=== PATIENT | male | born 1970 | race Asian ===

== ENCOUNTER 2016-10-31 10:42 | Day surgery (SDC) | payer OTHER ==
[2016-10-31] VITALS (8 sets, daily range): BP systolic 113–151; BP diastolic 79–100; PULSE 78–86; RESP 13–18; O2SAT 94–97
[~2016-10-31] VITALS: Ht 160 cm; Wt 82.9 kg
[~2016-10-31 10:42] MED LIST: BETA60LO4 TOP; HYG25 PO; Levofloxacin 500 mg/100 mL D5W IV ONE
[2016-10-31] MEDS ORDERED: Propofol 10,000 mCg/mL 20 mL Inj ONE (10:43)
[2016-10-31] MEDS ORDERED: Dexamethasone 4 mg/mL Inj ONE (10:43)
[2016-10-31] MEDS ORDERED: fentaNYL-PF 50 mCg/mL 2 mL Inj ONE (10:43)
[2016-10-31] MEDS ORDERED: Ondansetron 2 mg/mL 2 mL Inj ONE (10:43)
[2016-10-31] MEDS ORDERED: levoFLOXacin 500 mg/100 mL D5W Premix IV ONE (11:19)
[2016-10-31] MEDS: Lactated Ringer's 1,000 ML IV SCH ×2 (11:23→15:32)
[2016-10-31] MEDS ORDERED: Lactated Ringer's 500 ML IV PRN (15:54)
[2016-10-31] MEDS ORDERED: Lactated Ringer's 1,000 ML IV SCH (15:54)
--- NOTE | 2016-10-31 15:54 | PCM.HPANE ---
Patient Data Surgeon Admitting Provider: Attending Provider:Kiran Frankel MD Primary Care Physician:Tremayne Other Provider:Juan J Daigle Anesthesia Reason for Visit Phimosis Ht/WT & BMI Height (Feet): 5 Height (Inches): 3.00 Weight (Kilograms): 82.900 Body Mass Index 32.00 Allergies Coded Allergies: No Known Allergies (Unverified , 10/29/16) Past Anesthesia History Anesthesia History: Denies:: Abnormal Airway, Anesthesia Reactions, Difficult Intubation, Fam Anesthesia Reaction, Fam Malignant Hypertherm, Malignant Hyperthermia Diabetes History Hx Diabetes?: No MRSA MRSA: No Medications Hypertension Medication: Yes Home Meds Incl Beta Sheree: No Reported Medications Chlorthalidone 25 Mg [id number] Mg PO DAILY #30 TABLET 10/30/16 Betamethasone Valerate (Betamethasone Valerate 0.1% Lotion)60 Ml Lotion1 Appl TOP BID Ref 0 10/29/16 Discontinued Reported Medications [BP med] No Conflict CheckUnknown Dose DAILY 10/29/16 History History of ENT Problems?: No HEENT History: Denies:: Abnormal Airway Cataracts Difficult Intubation Dysphagia Glaucoma Hearing Problem Sinus Problem TMJ Denture Type: None Teeth Condition: Broken Teeth Hx of Heart Problems?: Yes Cardiovascular History: Positive for:: Hypertension Denies:: AICD Abdominal Aortic Aneurism Edema Heart Murmur Irregular Heartbeat Pacemaker Peripheral Vascular Hx of Respiratory Problem?: Yes Respiratory History: Positive for:: Pneumonia (2000-) Denies:: Asthma COPD Dyspnea Emphysema Oxygen Administration Tuberculosis Use of C-PAP Machine Use of Inhalers / NEBS Hx Neurologic Problems?: No Neurological History: Positive for:: Headaches (none since starting BP med last two weeks) Denies:: CVA Multiple Sclerosis Parkinson's Disease Seizures TIA Hx of GI Problems?: No Hx of Problems?: Yes Genitourinary History: Denies:: Kidney Stones Urinary Tract Infection Other Pertinent History: phimosis current admission problem Male Hx: Denies:: Prostate Problems Scrotal Mass Testicular Surgery Skin History: Denies:: History Skin Disorders? Pressure Ulcers Hx Musculoskeletal Problems?: No Musculoskeletal History: Denies:: Back Injury Degenerative Joint Fibromyalgia Joint Replacement Musculoskeletal Trauma Myasthenia Gravis Osteoarthritis Systemic Lupus Hx of Psycho/Social Problems?: No Psycho Social History: Denies:: Anxiety Hx Depression Hx Surgeries?: Yes (wisdom teeth) Hx Any Other Health Problems?: Yes Other History: Denies:: Cancer Thyroid Disease History Blood Transfusions: Positive for:: Accept Blood Products? Denies:: Blood Transfusions Hx Diabetes: No Hx Alcohol Use: YesAlcoholic Drinks Per Day: one to two drinks monthlyHx Substance Use: NoHave You Smoked inLast 12 mo: No Stop/Bang S-Snoring: Do You Snore Loudly: Yes T-Tired: feel tired, fatigued: Yes O-Obsered: Observed not breath: No P-Blood Pressure: treated: Yes B- Body Mass Index > 35 kg/m2: No A- Age over 50: No N- Neck Large Circumference: No G- Gender Male: Yes HUSSEIN Total Score: 4 HUSSEIN Risk Assessment: High Risk, =/>3 Yes Risk Assessment Category Category 1A: Patient has history of documented sleep apnea, and HAS NOT received any narcotic, sedative or anesthesia administration during this stay. Category 1B: Patient has history of documented sleep apnea, and HAS received any narcotic , sedative or anesthesia administration during this stay Category 2: Patient has SUSPECTED Obstructive Sleep Apnea, and HAS received any narcotic , sedative or anesthesia administration during this stay. Category 3: Patient has SUSPECTED Obstructive Sleep Apnea and HAS NOT received narcotic, sedative or anesthesia administration during this stay. Category 4: Outpatient in Procedural Areas with known sleep apnea or who screen positive for High Risk via the STOP/BANG questionnaire. Exam Exam Vital Signs Vital Signs Date Time Temp Pulse Resp B/P Pulse Ox O2 Delivery O2 Flow Rate FiO2 10/31/16 11:11 36.3 86 18 151/100 97 Room Air General Appearance: Alert, Oriented X3, Cooperative, No Acute Distress HEENT/AIRWAY: MP 2 Lungs: Clear to Auscultation, Normal Air Movement Heart: Exam Unremarkable, Regular Rate/Rhythm, No Murmurs/Rubs/Gallops Meds/Labs/Diagnostics Admission Meds Current Medications Lactated Ringer's (Lr) 1,000 ml @ 10 mls/hr Q24H IV Last administered on t 11:23; Start 10/31/16 at 05:00; Stop 11/04/16 at 08:59 Plan Impression Patient chart reviewed, patient interviewed and anesthestic plan with risks, benefits, and alternatives discussed, and informed consent obtained. ASA Physical Status: ASA2 Mod Systemic Disease Anesthetic Plan: GA Bene/Risks/Altern/Consents: Yes HP Complete Prior to Induction: Yes Jason Sauceda MD Oct 31, 2016 11:47
[2016-10-31] MEDS ORDERED: Atropine 0.4 mg/mL Inj IVPUSH PRN (15:55)
[2016-10-31] MEDS ORDERED: Labetalol 5 mg/mL 4 mL Inj IV PRN (15:55)
[2016-10-31] MEDS ORDERED: MetoCLOpramide 5 mg/mL 2 mL Inj IVPUSH PRN (15:55)
[2016-10-31] MEDS ORDERED: EPHEDrine Sulfate 50 mg/mL Inj IVPUSH PRN (15:55)
[2016-10-31] MEDS ORDERED: Ondansetron 2 mg/mL 2 mL Inj IVPUSH PRN (15:55)
[2016-10-31] MEDS ORDERED: HYDROmorphone 1 mg/mL Inj IVPUSH PRN (15:55)
[2016-10-31] MEDS ORDERED: Phenylephrine 10,000 mCg/mL Inj IVPUSH PRN (15:55)
[2016-10-31] MEDS ORDERED: fentaNYL-PF 50 mCg/mL 2 mL Inj IVPUSH PRN (15:55)
[2016-10-31] MEDS ORDERED: Bupivacaine-MPF 0.5% 30 mL Inj INJ ONE (16:09)
[2016-10-31] MEDS ORDERED: Lidocaine 1% 50 mL Inj INFILTRATE ONE (16:10)
--- NOTE | 2016-10-31 17:07 | PCM.SURGPO ---
Immediate Operative Note Date of Surgery: Oct 31, 2016 Pre Operative Diagnosis Phimosis Post Operative Diagnosis Phimosis, preputial-glanular penile adhesions Procedure Circumcision, excision of preputial-glanular penile adhesions, and dorsal slit Surgeon and Court Usher Surgeon: Kiran Frankel MD Assistants: None Findings Seveve pinpoint phimosis seen. Foreskin unable to be retracted. Dorsal slit performed. Preputial-glanular penile adhesions seen. Excision of preputial- glanular penile adhesions performed. Circumcision performed. Complications There were no periprocedural complications identified. Surgical Specimen Removed: Yes Specimen sent to Pathology: Yes Surgical Specimen description: Foreskin Anesthetic Administered: GA Grafts, Implants: None Output, Estimated Blood Loss: <5 Blood Admin during surgery: No Additional information Patient to be discharged home when stable, to return to see me in 2 weeks for post-op visit. Kiran Frankel MD Oct 31, 2016 17:07
--- NOTE | 2016-10-31 17:10 | PCM.ANEP1 ---
Post Anesthesia Phase 1 PACU Phase 1 Assessment Vital Signs Vital Signs Date Time Temp Pulse Resp B/P Pulse Ox O2 Delivery O2 Flow Rate FiO2 10/31/16 11:11 36.3 86 18 151/100 97 Room Air Anesthetic Administered: GA Level of Alertness: Awake, talking NIXON's with Equal Strength: Yes Pain: No Nausea or Vomiting: No Cardiovascular Function and Hy: Yes Oxygen Delivery: Nasal Cannula Lungs: Clear to Auscultation, Normal Air Movement Complications: No Follow up Care: No Patient Instructions Provided: Yes (per surgeon) Comments see [facility] notes for vitals Jason Sauceda MD Oct 31, 2016 17:10
--- NOTE | 2016-10-31 17:21 | PCM.DISURG ---
Surgical Discharge Instruction Date of Service Oct 31, 2016 Dates of Hospitalization Date of Hospital Admission Oct 31, 2016 Providers Admitting Physician: Kiran Frankel MD Primary Care Physician: Tremayne Attending Physician: Kiran Frankel MD Discharge Diagnosis Discharge Diagnosis Phimosis, preputial-glanular penile adhesions Post Operative diagnosis Phimosis, preputial-glanular penile adhesions Diet Discharge Diet: No restrictions Activity Discharge Activity-General: No driving while taking narcotic, Other (No sexual activity for 4 weeks) Dressing and Incisional Care Dressing Care: Other (Remove dressing in 2 days, then start applying Bacitracin antibiotic ointment to wound and head of penis 3 times a day) Hygiene: May shower (in 2 days), Other (No bath, pool, or spa for 4 weeks) Follow Up Plan Follow-up Provider (F9): Kiran Frankel MD Follow-up appointment: Weeks (2 weeks for post-op visit) Call your provider for: Fever, Chills, Vomiting, Wound redness, Increasing wound pain, Warmth to touch, Discharge @ incision, pus discharge, Other (Pain uncontrolled by pain medications) Kiran Frankel MD Oct 31, 2016 17:21
[2016-10-31] MEDS ORDERED: HYDROcodone-APAP 5-325 mg Tablet PO PRN (17:30)
--- NOTE | 2016-11-01 17:06 | OP ---
[address] [address] OPERATIVE REPORT PATIENT: THOMAS NOVOA : 1970 MR#: [id number] ADMIT: 10/31/2016 JOB ID: [id number] DATE OF SURGERY: 10/31/2016 SURGEON: Kiran Frankel MD. PREOPERATIVE DIAGNOSIS(ES): Phimosis. POSTOPERATIVE DIAGNOSIS(ES): Phimosis, preputial-glanular penile adhesions. PROCEDURE: Circumcision, excision of preputial-glanular penile adhesions, and dorsal slit. AQUACULTURE DIRECTOR: None. ANESTHESIA: General. ESTIMATED BLOOD LOSS: Less than 5 mL. SPECIMENS: Foreskin. DRAINS: None. COMPLICATIONS: None. CONDITION: Stable. FINDINGS: Severe pinpoint phimosis seen. Foreskin unable to be retracted. Dorsal slit performed. Preputial-glanular penile adhesions seen. Excision of preputial-glanular penile adhesions performed. Circumcision performed. INDICATIONS: The patient is a 46-year-old male seen by BROOKS Suarez in the office with significant phimosis. This patient now presents for circumcision. PROCEDURE: The patient was brought to the operating room and placed supine on the operating room table. The patient was given Levaquin IV antibiotics. Sequential compression device boots were placed. General anesthesia was administered. The patient was left in supine position. The patient was prepped and draped in standard surgical fashion. Examination revealed severe pinpoint fibrosis. The foreskin was unable to be retracted. Initially, dorsal slit was performed. Specifically, a straight hemostat clamp was placed through the opening in the foreskin and the foreskin was gently spread. Then, the clamp was applied to the distal foreskin on the dorsal aspect, making sure to stay well away from the glans. The clamp was applied for one minute, and the clamp was removed. The previously clamped area was incised using Metzenbaum scissors, thus performing a dorsal slit. Subsequently, the foreskin was able to be retracted completely. Preputial-glanular penile adhesions were seen. The penis was re-prepped using Betadine solution. Excision of preputial-glanular penile adhesions was performed using a combination of blunt and sharp dissection. Then, the penis was re-prepped with Betadine solution, and circumcision was performed. The foreskin was retracted. A line was marked approximately 0.5-1 cm proximal to the martinez. Incision was made at the level of this line through the skin, subcutaneous tissue, and dartos fascia, down to Ryan's fascia sharply using #15 blade. Foreskin was reduced. A line was marked at the outline of the martinez on the foreskin. Incision was made at the level of this line through the skin, subcutaneous tissue, and dartos fascia, down to Ryan's fascia sharply using #15 blade. The foreskin was incised on the dorsal aspect using Metzenbaum scissors. The foreskin was excised using Bovie electrocautery and sent to Pathology for permanent specimen. Excellent hemostasis was achieved using Bovie electrocautery. The wound was irrigated. Then, skin edges were reapproximated on the dorsal aspect of the penis using a simple interrupted 3-0 chromic suture. The foreskin was reapproximated on the ventral aspect of the penis using a U-suture of 3-0 chromic. Then, skin edges were reapproximated on the left side of the penis using a running 3-0 chromic suture, and skin edges were then reapproximated on the right side of the penis using a running 3-0 chromic suture. Local anesthesia in the form of 0.5% plain Marcaine and 1% plain lidocaine using a penile ring block was administered. Skin was cleaned and dried. Bacitracin antibiotic ointment and sterile dressing were applied. The patient was awakened from general anesthesia and transferred to the recovery room in stable condition. The patient tolerated the procedure well. Plan is for the patient to return to see me in the office in two weeks for postop visit. LIS
--- NOTE | 2016-11-04 14:15 | PATH ---
SURGICAL PATHOLOGY Attending Physician:Kiran Frankel MD CASE STATUS: Signed Out PATIENT NAME: THOMAS NOVOA JR PID: [id number] : 1970 DATE COLLECTED:10/31/2016 00:00 SPECIMEN: Foreskin CLINICAL HISTORY: PHIMOSIS 1). FORESKIN FINAL DIAGNOSIS: 1.FORESKIN: CHRONIC INFLAMMATION. NO EVIDENCE OF MALIGNANCY OR DYSPLASIA. ICD10 CODE N47.1 GROSS DESCRIPTION: The specimen is received in formalin, labeled with the patient's name, sublabeled as foreskin and consists of an unoriented piece foreskin (8.5 x 4.3 x 0.7 cm). The foreskin is brown with normal wrinkles and focally pale evans shiny with distorted wrinkles and flat edematous areas. The resection margin is focally bright red. No nodules, masses or lesions are identified. Ink code: black-resection margin. Section code: (A, B) foreskin, serially sectioned, wireless sales representative. 11/02/16 JM MICRO DESCRIPTION: See diagnosis. ICD-9 CODES: CPT CODES: 1: 27407 Electronically Signed Out Venu Saucedo MD [facility] [address], [place] [address] Technical component performed at [facility], [address] [place] [address] [address], [place], [address]
== END 2016-10-31 23:59 | disposition home or self-care (01) ==
LOC: SAS 10:42
PROVIDERS: ATTEND Urology
DX: N47.1 Phimosis (principal); I10 Essential (primary) hypertension; F17.210 Nicotine dependence, cigarettes, uncomplicated
CPT/HCPCS: 54161; J1100; J1885; J2405; J3010; J7120